=== PATIENT | male | born 1960 | race African-American/Black ===

== ENCOUNTER 2022-08-20 15:11 | Outpatient (CLI) | payer BC ==
[2022-08-20 16:09] LABS: #Basophils 0.1 10x3/uL (0.0-0.2); #Eosinphils 0.1 10x3/uL (0.0-0.5); #Monocytes 0.3 10x3/uL (0.0-1.1); #Neutrophils 1.8 10x3/uL (1.5-8.4); %Basophils 1.4 % (0.0-2.0); %Eosinophils 1.9 % (0.0-6.0); %Lymphocytes 37.2 % (18.0-47.0); %Monocytes 8.6 % (0.0-10.0); %Neutrophils 50.6 % (40.0-75.0); Hemoglobin 13.7 g/dL (13.5-17.5); Mean Corpuscular HGB CONC 33.2 g/dL (32.0-36.0); Mean Corpuscular Hemoglobin 30.2 pg (27.0-33.0); Mean Corpuscular Volume 91.2 fl (81.2-95.1); Mean Platelet Volume 9.2 fl (7.4-10.4); Platelet Count 313 10x3/uL (150-450); Red Blood Cell (RBC) Count 4.53 10x6/uL (4.32-5.72); White Blood Cell (WBC) Count 3.6 10x3/uL (3.5-10.5)
[2022-08-20 16:21] LABS: Anion Gap 12 mmol/L (10-20); BUN (Urea Nitrogen) 12 mg/dL (8.4-25.7); Calc. Creatinine Clearance 0 mL/min (70-130); Calcium 9.5 mg/dL (7.8-10.44); Carbon Dioxide 28 mmol/L (23-31); Chloride 104 mmol/L (98-107); Estimated GFR 88; Glucose 112 mg/dL (80-115); Potassium 3.8 mmol/L (3.5-5.1); Sodium 140 mmol/L (136-145)
== END 2022-08-20 15:12 | disposition home or self-care (01) ==
LOC: LABBT 15:11
PROVIDERS: ATTEND Specialist
DX: Z01.818 Encounter for other preprocedural examination (principal); K42.9 Umbilical hernia without obstruction or gangrene
CPT/HCPCS: 80048; 85025; 93005; 93010

== ENCOUNTER 2022-08-22 07:09 | Day surgery (SDC) | payer BC ==
[2022-08-21 10:09] VITALS: BMI 29.0
[2022-08-22] MEDS ORDERED: Acetaminophen 500 MG TAB ONE (07:54)
[2022-08-22] MEDS ORDERED: Ketorolac Tromethamine 30 MG/ML VIAL ONE (07:54)
[2022-08-22] MEDS ORDERED: Gabapentin 300 MG CAP ONE (07:55)
[2022-08-22] MEDS ORDERED: fentaNYL PF 100 MCG/2 ML SYRINGE ONE (07:58)
[2022-08-22] MEDS ORDERED: Dexmedetomidine 200 MCG/2 ML VIAL ONE (07:59)
[2022-08-22] MEDS ORDERED: Bupivacaine/Epinephrine 0.25% 30 ML VIAL ONE (08:38)
[2022-08-22] MEDS ORDERED: Sodium Chloride 0.9% 100 ML ONE (09:51)
[2022-08-22] MEDS ORDERED: CEFAZOLIN 2 GM VIAL ONE (09:51)
[2022-08-22] MEDS ORDERED: NEOSTIGMINE 3 MG/3 ML SYR 3 MG/3 ML SYRINGE ONE (10:00)
[2022-08-22] MEDS ORDERED: Dexamethasone 20 MG/5 ML VIAL ONE (10:00)
[2022-08-22] MEDS ORDERED: ePHEDrine 50 MG/ML VIAL ONE (10:00)
[2022-08-22] MEDS ORDERED: Ondansetron PF 4 MG/2 ML Vial ONE (10:00)
[2022-08-22] MEDS ORDERED: Lidocaine 1% PF 5 ML VIAL ONE (10:00)
[2022-08-22] MEDS ORDERED: Rocuronium Bromide 10 MG/ML (10ML VIAL) ONE (10:00)
[2022-08-22] MEDS ORDERED: Glycopyrrolate 0.2 MG/ML 5 ML SYRINGE ONE (10:00)
[2022-08-22] MEDS ORDERED: Fentanyl 100 MCG/2 ML VIAL ONE ×3 (11:43→12:49)
[2022-08-22] MEDS ORDERED: HYDROcodone/Acetaminophen 5/325 mg Tablet ONE (15:41)
== END 2022-08-22 16:11 | disposition home or self-care (01) ==
LOC: SDC 07:09
PROVIDERS: ATTEND Specialist
PROC: 8E0W4CZ Robotic Assisted Procedure of Trunk Region, Percutaneous Endoscopic Approach (ICD-10-PCS; principal; 2022-08-22)
PROC: 0WUF4JZ Supplement Abdominal Wall with Synthetic Substitute, Percutaneous Endoscopic Approach (ICD-10-PCS; principal; 2022-08-22)
DX: K43.9 Ventral hernia without obstruction or gangrene (principal); E78.5 Hyperlipidemia, unspecified; Z79.899 Other long term (current) drug therapy; Z88.5 Allergy status to narcotic agent
CPT/HCPCS: C1781; J1100; J1885; J2405; J3010; J3490